=== PATIENT | female | born 1990 | race Caucasian/White ===

== ENCOUNTER 2020-05-17 13:46 | Emergency (ER) | payer OTHER ==
[~2020-05-17] VITALS: Ht 160 cm; Wt 81.7 kg
[~2020-05-17 13:46] MED LIST: MULVITMINE PO; NITR100CA PO; PROM25 PO
[2020-05-17] MEDS ORDERED: METH40 (15:12)
[2020-05-17] MEDS ORDERED: NAPR550 PO (15:42)
[2020-05-17] MEDS ORDERED: Cleocin HCl300 MG PO (15:42)
== END 2020-05-17 15:53 | disposition home or self-care (01) ==
LOC: ER 13:46
DX: L02.416 Cutaneous abscess of left lower limb (principal)
CPT/HCPCS: 99282

== ENCOUNTER 2021-03-21 12:53 | Emergency (ER) | payer OTHER ==
[~2021-03-21] VITALS: Ht 160 cm; Wt 81.7 kg
[~2021-03-21 12:53] MED LIST changes: +Cleocin HCl300 MG PO; +METH40; +NAPR550 PO
== END 2021-03-21 15:39 | disposition home or self-care (01) ==
LOC: ER 12:53
DX: L02.416 Cutaneous abscess of left lower limb (principal); F15.10 Other stimulant abuse, uncomplicated; F11.10 Opioid abuse, uncomplicated; Z88.1 Allergy status to other antibiotic agents
CPT/HCPCS: 99283

== ENCOUNTER 2021-08-11 01:01 | Day surgery (SDC) | payer OTHER ==
[~2021-08-11 01:01] MED LIST changes: -METH40; +METH40 PO
[2021-08-11] MEDS ORDERED: OMEPRAZOLE20 MG PO (11:59)
[2021-08-11] MEDS ORDERED: Vistaril50 MG PO (11:59)
[2021-08-11] MEDS ORDERED: TRAZ100 PO (12:01)
[2021-08-11] MEDS ORDERED: VRAYLAR3 MG PO (12:01)
--- NOTE | 2021-08-11 12:04 | NUR ---
UNABLE TO SECURE IV AFTER 2 RNS MADE 5 ATTEMPTS. ULTRASOUND WAS USED, BUT VEINS WERE DEEP AND NARROW AND PT COULD NOT TOLERATE THE PROCEDURE, ALTHOUGH LIDOCAINE HAD BEEN USED. PT STS SHE FORGOT TO HYDRATE THIS AM, SHE STATED THAT SHE WAS QUITE NERVOUS. PT TO CONTACT THE DENTIST.
== END 2021-08-11 10:45 | disposition home or self-care (01) ==
LOC: ATC 01:01
DX: I87.2 Venous insufficiency (chronic) (peripheral) (principal); F41.9 Anxiety disorder, unspecified; J45.909 Unspecified asthma, uncomplicated; Z88.0 Allergy status to penicillin; Z88.1 Allergy status to other antibiotic agents
CPT/HCPCS: 99211; J2001

== ENCOUNTER 2023-05-06 07:06 | Emergency (ER) | payer OTHER ==
[~2023-05-06] VITALS: Ht 160 cm; Wt 99.8 kg
[~2023-05-06 07:06] MED LIST changes: +OMEPRAZOLE20 MG PO; +TRAZ100 PO; +VRAYLAR3 MG PO; +Vistaril50 MG PO
[2023-05-06 07:43] VITALS: BP 141/98
== END 2023-05-06 08:50 | disposition home or self-care (01) ==
LOC: ER 07:06
DX: F51.4 Sleep terrors [night terrors] (principal); F19.10 Other psychoactive substance abuse, uncomplicated; Z88.8 Allergy status to other drugs, medicaments and biological substances; Z88.0 Allergy status to penicillin; Z79.899 Other long term (current) drug therapy; Z87.891 Personal history of nicotine dependence
CPT/HCPCS: 99282